=== PATIENT | male | born 1965 | race Caucasian/White ===

== ENCOUNTER 2017-03-29 02:34 | Emergency (ER) | payer SELFPAY ==
[~2017-03-29] VITALS: Ht 172.7 cm; Wt 90.7 kg
--- NOTE | 2017-03-29 02:41 | ED SYNCOPE COMPLAINT ---
History of Present Illness General Chief Complaint: Syncope and Near-Syncope Stated Complaint: BIBA FOR NEAR SYNCOPE Source: patient, EMS Exam Limitations: no limitations Vital Signs & Intake/Output Vital Signs & Intake/Output Vital Signs Date Time Temp Pulse Resp B/P B/P Pulse O2 O2 Flow FiO2 Mean Ox Delivery Rate 03/29 0635 75 16 130/90 96 Room Air 03/29 0236 98.8 104 20 166/92 Room Air Allergies Coded Allergies: Iodinated Contrast- Oral and IV Dye (Severe, ANAPHYLAXIS 03/29/17) shellfish derived (Severe, ANAPHYLAXIS 03/29/17) Penicillins (HIVES 03/29/17) Reconcile Medications Losartan/Hydrochlorothiazide (Losartan-Hctz 50-12.5 MG Tab) 50 MG-12.5 MG TABLET 50 MG PO DAILY HTN (Reported) Triage Nurses Notes Reviewed? yes HPI: 52-year-old male presents to the ER with chief complaint of left shoulder pain reading to his left chest and up his neck. He states that he had rotator cuff surgery done last December and ever since then he's had worsening symptoms. As he is using his shoulder more and more the symptoms got worse. For 3 nights in a row he thought something was going on and that he might . He went to his doctor's office last week at: Moves all residual symptoms from his shoulder surgery. Patient states these were any might have a heart attack. Patient denies any shortness of breath or diaphoresis. He states he was fishing all day and when he went home he noticed the symptoms and decided to come to the ER for evaluation. Patient denies any drug or alcohol abuse. He uses occasional alcohol. Positive family history of coronary disease. (TIAGO VYAS MD) Past History Travel History Traveled to [place] past 21 day No Medical History Any Pertinent Medical History? see below for history Cardiovascular: hypertension Surgical History Surgical History: LEFT ROTATOR CUFF SURGERY 12/2016 Psychosocial History Tobacco Use: Current Daily Use ETOH Use: occasional use Illicit Drug Use: marijuana Family History Comment: MOTHER - HEART VALVE REPLACEMENT, CAD Hx Contributory? Yes (TIAGO VYAS MD) Review of Systems Review of Systems Constitutional: Denies: chills, fever. EENTM: Reports: no symptoms. Respiratory: Reports: no symptoms. Cardiovascular: Reports: chest pain. GI: Denies: abdominal pain. Genitourinary: Reports: no symptoms. Musculoskeletal: Reports: joint pain. Skin: Reports: no symptoms. Neurological/Psychological: Reports: anxiety, headache, numbness, tingling. All Other Systems: Reviewed and Negative (TIAGO VYAS MD) Physical Exam Physical Exam General Appearance: well developed/nourished, alert, awake, anxious, mild distress Head: atraumatic, normal appearance Eyes: Bilateral: normal appearance, PERRL, EOMI. Ears, Nose, Throat: normal pharynx, hearing grossly normal Neck: normal inspection, supple, full range of motion Respiratory: normal breath sounds, chest non-tender, no respiratory distress Cardiovascular: regular rate/rhythm Gastrointestinal: soft, non-tender Back: normal inspection, normal range of motion Cranial Nerves: normal hearing, normal speech, PERRL (TIAGO VYAS MD) Core Measures ACS in differential dx? Yes ASA ordered for poss ACS? No-ACS ruled out CVA/TIA Diagnosis: No Severe Sepsis Present: No Septic Shock Present: No (IWONA CASTREJON,BETHANY Browning) Progress Differential Diagnosis: ANXIETY, AMI, CHRONIC SHOULDER PAIN, Plan of Care: Orders Procedure Date/time Status TROPONIN LEVEL 03/29 630 Complete EKG 03/29 630 Active ETHANOL 03/29 316 Complete MISTAKE 03/29 256 Active TROPONIN LEVEL 03/29 237 Complete COMPREHENSIVE METABOLIC PANEL 03/29 237 Complete CBC WITHOUT DIFFERENTIAL 03/29 237 Complete EKG 03/29 237 Active Laboratory Tests 03/29/17 0639: Troponin I < 0.01 03/29/17 0316: Anion Gap 12, Estimated GFR > 60, BUN/Creatinine Ratio 18.9, Glucose 106 H, Calcium 9.0, Total Bilirubin 0.4, AST 18, ALT 28, Alkaline Phosphatase 92, Troponin I < 0.01, Total Protein 6.5, Albumin 4.3, Globulin 2.2, Albumin/ Globulin Ratio 2.0, Serum Alcohol < 10.0 03/29/17 0315: CBC w Diff MAN DIFF ORDERED, RBC 4.78, MCV 92.2, MCH 31.1 H, RDW 13.3, MPV 9.0, Segmented Neutrophils 63, Lymphocytes 24, Monocytes 11 H, Eosinophils 2, Platelet Estimate ADEQUATE, Normocytic RBCs VERIFIED, Normochromic RBCs VERIFIED , PUBS MCHC 33.8, Fld Total RBCs Counted 100 03/29/17 0256: Serum Alcohol Cancelled Initial ED EKG: NSR Hand-Off Endorsed To: BETHANY BUSTILLO MD Endorsed Time: 709 Pending: labs (TROPONIN) (TIAGO VYAS MD) Departure Departure Condition: Stable Referrals: VEGA CASTREJON,SOFIA Browning (PCP/Family) Departure Forms: Customer Survey General Discharge Information PA/[employer] Co-Sign Statement Statement: ED Attending supervision documentation- [] I saw and evaluated the patient. I have also reviewed all the pertinent lab results and diagnostic results. I agree with the findings and the plan of care as documented in the PA's/[employer]'s documentation. [X] I have reviewed the ED Record and agree with the PA's/[employer]'s documentation. [] Additions or exceptions (if any) to the PAs/[employer]'s note and plan are summarized below: [] (TIAGO VYAS MD) Departure Disposition: HOME OR SELF CARE Clinical Impression Primary Impression: Shoulder pain, left Qualifiers: Chronicity: chronic Qualified Codes: M25.512 - Pain in left shoulder; G89.29 - Other chronic pain Secondary Impressions: Chest pain Qualifiers: Chest pain type: other chest pain Qualified Code: R07.89 - Other chest pain Additional Instructions: RETURN IF SYMPTOMS WORSEN OR FOR ANY CONCERNS (BETHANY BUSTILLO MD)
[2017-03-29 03:29] LABS: MEAN CORPUSCULAR HGB 31.1 PG (27.0-31.0); MEAN CORPUSCULAR HGB CONC 33.8 G/DL (33.0-37.0); MEAN CORPUSCULAR VOLUME 92.2 FL (80.0-94.0); PLATELET COUNT 145 /CUMM (130-400); RBC DISTRIBUTION WIDTH 13.3 % (11.5-14.5); RED BLOOD CELL CT 4.78 /CUMM (4.70-6.10); WHITE BLOOD CELL COUNT 6.5 /CUMM (4.8-10.8)
[2017-03-29] MEDS ORDERED: LOSARTAN-HCTZ1 EAC1 PO (05:08)
[2017-03-29 08:15] VITALS: BP 153/98
== END 2017-03-29 08:22 ==
LOC: ERH 02:34
PROVIDERS: Emergency Medicine
DX: M25.512 Pain in left shoulder (principal); G89.29 Other chronic pain; R07.89 Other chest pain; M54.2 Cervicalgia; I10 Essential (primary) hypertension; F17.200 Nicotine dependence, unspecified, uncomplicated
CPT/HCPCS: 93005; 93010; G0480